=== PATIENT | female | born 1965 | race Caucasian/White ===

== ENCOUNTER 2024-03-11 11:42 | Outpatient (REF) | payer BC, SELFPAY | END 2024-03-11 11:43 | disposition home or self-care (01) | LOC: HO.LAB 11:42 | PROVIDERS: PCP Nurse Practitioner Family; Visit Provider Psychiatry & Neurology Psychiatry | DX: F33.2 Major depressive disorder, recurrent severe without psychotic features (principal) | CPT/HCPCS: 80335 ==

== ENCOUNTER 2024-06-24 14:14 | Outpatient (REF) | payer OTHER, SELFPAY | END 2024-06-24 14:15 | disposition home or self-care (01) | LOC: HO.LAB 14:14 | PROVIDERS: PCP Nurse Practitioner Family; Visit Provider Psychiatry & Neurology Psychiatry | DX: F33.2 Major depressive disorder, recurrent severe without psychotic features (principal) | CPT/HCPCS: 80335 ==